=== PATIENT | male | born 1970 | race Native Hawaiian/Other Pacific Islander ===

== ENCOUNTER 2017-08-01 12:48 | Inpatient (IN) | payer OTHER ==
[2017-08-01 13:49] LABS: Alanine Aminotransferase 33 units/L (7-56); Albumin 3.3 g/dL (3.9-5); BUN/Creatinine Ratio 14; Blood Urea Nitrogen 11 mg/dL (9-20); Calcium 8.2 mg/dL (8.4-10.2); Hemolysis Index 6
[2017-08-01 14:03] LABS: Basophils # (Auto) 0.1 K/mm3 (0.0-0.1); Basophils % (Auto) 0.5 % (0.0-1.8); Eosinophils % (Auto) 0.3 % (0.0-4.3); Hematocrit 43.4 % (35.5-45.6); Hemoglobin 14.6 gm/dl (11.8-15.2); Lymphocytes # (Auto) 1.1 K/mm3 (1.2-5.4); Lymphocytes % (Auto) 9.3 % (13.4-35.0); Mean Corpuscular HGB Conc 34 % (32-34); Mean Corpuscular Hemoglobin 30 pg (28-32); Mean Corpuscular Volume 90 fl (84-94); Monocytes # (Auto) 1.8 K/mm3 (0.0-0.8); Red Blood Count 4.81 M/mm3 (3.65-5.03); Red Cell Distribution Width 13.1 % (13.2-15.2)
[2017-08-01 14:49] LABS: Platelet Count 127 K/mm3 (140-440)
[2017-08-01] MEDS ORDERED: NACL 0.9% 1000 ML 1,000 ML IV ONE (20:51)
[2017-08-01] MEDS ORDERED: ZOFRAN IV ONE (20:52)
[2017-08-01] MEDS ORDERED: SUBLIMAZE IV ONE (20:52)
--- NOTE | 2017-08-01 20:53 | Emergency Department Report ---
HPI - General Chief Complaint: Abdominal Pain - HPI HPI: The patient is a 47 yo male who presents for evaluation of abdominal pain. The patient reports generalized abdominal pain for the past 4 days. He states that his abdominal pain has been concentrated to the upper abdomen, crampy in quality , moderate severity, exacerbated with movement. The patient denies headache, neck stiffness or throat pain, parasthesias, hemoptysis, palpitations, vomiting , diarrhea, dysuria. ED Past Medical Hx - Past Medical History Previous Medical History?: No - Surgical History Past Surgical History?: No - Social History Smoking Status: Never Smoker ED Review of Systems ROS: Stated complaint: ABDOMINAL PAIN Other details as noted in HPI Constitutional: denies: fever ENT: denies: throat or neck pain Respiratory: denies shortness of breath Cardiovascular: denies: chest pain Endocrine: denies unexplained weight loss or gain Gastrointestinal: reports: abdominal pain, nausea Genitourinary: denies: dysuria Musculoskeletal: denies: leg swelling Skin: denies: rash Neurological: denies: headache Hematological/Lymphatic: denies: easy bleeding or easy bruising Psych: denies sadness or hopelessness Physical Exam - Physical Exam Vital Signs: Vital Signs 08/01/17 13:02 Temperature 100.1 F H Pulse Rate 110 H Blood Pressure 90/59 Physical Exam: General: well-nourished, well-developed, no acute distress Head: Normocephalic, atraumatic Eyes: normal sclera ENT: Mucous membranes are pale and dry Neck: No neck stiffness, no cervical adenopathy Respiratory: Breath sounds equal bilaterally, no wheezing, rales, or rhonchi Cardio: S1 and S2 present, no murmurs, rubs, gallops, capillary refill is delayed Abdomen: Normoactive bowel sounds, soft abdomen, generalized tenderness to palpation present, no rigidity, no guarding or rebound tenderness Chest WALL/Back: No tenderness to palpation of the chest wall, no CVA tenderness with percussion Musc: No pitting edema Skin: No rash Neuro: no facial drooping, normal speech Psych: Normal affect ED Course Vital Signs 08/01/17 13:02 Temperature 100.1 F H Pulse Rate 110 H Blood Pressure 90/59 ED Medical Decision Making - Lab Data Result diagrams: 08/01/17 13:19 08/01/17 13:19 - Medical Decision Making The patient was seen and examined by myself. The patient is placed on a laboratory monitor and continuous pulse ox. On initial evaluation, the patient was found to be in no distress, although febrile, temperature 101.9, tachycardic, and near hypotensive, concerning for acute septic shock. Evaluation orders were placed. The patient is given normal saline fluid bolus for treatment of dehydration and potential septic shock. The patient is given IV Zosyn. Lab results revealed leukocytosis, elevated lipase of 79, and elevated BNP of 3000. CT scan abdomen and pelvis reveals basilar infiltrate associated with pleural effusion. The on-call hospitalist service was contacted. They agreed to admit the patient for further treatment and close monitoring. The ED admit order was placed. The patient was admitted in guarded condition. Critical Care Time: Yes Critical care time in (mins) excluding proc time.: 35 Critical care attestation.: Due to the critical nature of this patients presentation, which necessitated multiple bedside assessments, manipulation and supportive measures to prevent further life threatening deterioration, I would like to bill for a total of 35 minutes of critical care time. This was exclusive of any separately billable procedures. Critical Care Time: 35 min ED Disposition Clinical Impression: Abdominal pain, acute, periumbilical, Dehydration, Septic shock Sepsis Qualifiers: Sepsis type: sepsis due to unspecified organism Qualified Code(s): A41.9 - Sepsis, unspecified organism Pneumonia Qualifiers: Pneumonia type: due to unspecified organism Laterality: bilateral Lung location : lower lobe of lung Qualified Code(s): J18.1 - Lobar pneumonia, unspecified organism Disposition: OP ADMIT IP TO THIS HOSP Is pt being admited?: Yes Does the pt Need Aspirin: Yes Condition: Critical Time of Disposition: 20:52
[2017-08-01] MEDS ORDERED: TYLENOL PR ONE (21:06)
[2017-08-01] MEDS ORDERED: TYLENOL ONE (21:10)
[2017-08-01] MEDS ORDERED: TYLENOL PO ONE (21:12)
--- NOTE | 2017-08-01 22:04 | Cat Scan Report ---
FINAL REPORT PROCEDURE: CT ABDOMEN PELVIS W CON TECHNIQUE: Computerized axial tomography of the abdomen and pelvis was performed after the IV injection of iodinated nonionic contrast. HISTORY: abdominal pain, fever COMPARISON: No prior studies are available for comparison. FINDINGS: Visualized lower thorax: Mild atelectasis/infiltrate and slight bilateral lower lung effusions.. Liver: Normal size and attenuation. Spleen: Normal size and attenuation. Gallbladder and biliary system: Normal. Pancreas: Normal. Adrenals: Normal. Kidneys: Normal. GI tract: The stomach is normal. The small bowel has a normal caliber without obstruction. No ileus or enteritis. The cecum and appendix are normal. Moderate diverticular changes within the colon.. Lymph nodes and mesentery: Normal. Vasculature: Normal. Bladder: Normal. Reproductive organs: Normal. Peritoneum: No free fluid. Musculoskeletal structures: No significant abnormality. Other: None. IMPRESSION: There is no evidence of intestinal or urinary tract obstruction. No ileus or enteritis. The appendix is normal. Bilateral lower lung infiltrates/atelectasis with mild effusions.
--- NOTE | 2017-08-01 23:00 | XRay Report ---
FINAL REPORT PROCEDURE: XR CHEST 1V AP TECHNIQUE: Chest radiograph anteroposterior view. CPT 52705 HISTORY: cough, fever COMPARISON: No prior studies are available for comparison. FINDINGS: Heart: Normal. Mediastinum/Vessels: Normal. Lungs/Pleural space: Normal. Bony thorax: No acute osseous abnormality. Life support devices: None. IMPRESSION: No acute cardiopulmonary abnormality.
[2017-08-01] MEDS ORDERED: MORPHINE IV PRN (23:16)
[2017-08-01] MEDS ORDERED: ZOFRAN IV PRN (23:16)
[2017-08-01] MEDS ORDERED: TYLENOL PO PRN (23:16)
[2017-08-01] MEDS ORDERED: SODIUM CHLORIDE FLUSH SYRINGE 10 ML IV PRN (23:16)
--- NOTE | 2017-08-01 23:16 | History and Physical Report ---
History of Present Illness Date of examination: 08/01/17 Date of admission: 08/01/17 Chief complaint: Fever 2 days duration History of present illness: MAKAH: The patient is a 47 yo male who presents for evaluation of abdominal pain. The patient reports generalized abdominal pain for the past 4 days. He states that his abdominal pain has been concentrated to the upper abdomen, crampy in quality , moderate severity, exacerbated with movement. The patient denies headache, neck stiffness or throat pain, parasthesias, hemoptysis, palpitations, vomiting , diarrhea, dysuria. Past Medical History Previous Medical History?: No Surgical History Past Surgical History?: No Social History Smoking Status: Never Smoker Review of Systems ROS: Stated complaint: ABDOMINAL PAIN Other details as noted in HPI Constitutional: denies: fever ENT: denies: throat or neck pain Respiratory: denies shortness of breath Cardiovascular: denies: chest pain Endocrine: denies unexplained weight loss or gain Gastrointestinal: reports: abdominal pain, nausea Genitourinary: denies: dysuria Musculoskeletal: denies: leg swelling Skin: denies: rash Neurological: denies: headache Hematological/Lymphatic: denies: easy bleeding or easy bruising Psych: denies sadness or hopelessness Medications and Allergies Allergies Allergy/AdvReac Type Severity Reaction Status Date / Time No Known Allergies Allergy Verified 08/01/17 20:53 Active Meds: Active Medications Piperacillin Sod/Tazobactam Sod (Zosyn/Ns 3.375gm/50ml) 3.375 gm in 50 mls @ 100 mls/hr IV Q6HR DIMA Exam - Constitutional Vitals: Temp Pulse Resp BP Pulse Ox 98.5 F 94 H 17 98/57 93 08/01/17 22:38 08/01/17 21:16 08/01/17 21:16 08/01/17 22:00 08/01/17 22:00 Results - Labs CBC & Chem 7: 08/01/17 13:19 08/01/17 13:19 Labs: Laboratory Last Values WBC 11.7 K/mm3 (4.5-11.0) H 08/01/17 13:19 RBC 4.81 M/mm3 (3.65-5.03) 08/01/17 13:19 Hgb 14.6 gm/dl (11.8-15.2) 08/01/17 13:19 Hct 43.4 % (35.5-45.6) 08/01/17 13:19 MCV 90 fl (84-94) 08/01/17 13:19 MCH 30 pg (28-32) 08/01/17 13:19 MCHC 34 % (32-34) 08/01/17 13:19 RDW 13.1 % (13.2-15.2) L 08/01/17 13:19 Plt Count 127 K/mm3 (140-440) L 08/01/17 13:19 Lymph % (Auto) 9.3 % (13.4-35.0) L 08/01/17 13:19 [place] % (Auto) 15.0 % (0.0-7.3) H 08/01/17 13:19 Eos % (Auto) 0.3 % (0.0-4.3) 08/01/17 13:19 Baso % (Auto) 0.5 % (0.0-1.8) 08/01/17 13:19 Lymph # 1.1 K/mm3 (1.2-5.4) L 08/01/17 13:19 [place] # 1.8 K/mm3 (0.0-0.8) H 08/01/17 13:19 Eos # 0.0 K/mm3 (0.0-0.4) 08/01/17 13:19 Baso # 0.1 K/mm3 (0.0-0.1) 08/01/17 13:19 Seg Neutrophils % 74.9 % (40.0-70.0) H 08/01/17 13:19 Seg Neutrophils # 8.8 K/mm3 (1.8-7.7) H 08/01/17 13:19 Sodium 132 mmol/L (137-145) L 08/01/17 13:19 Potassium 3.8 mmol/L (3.6-5.0) 08/01/17 13:19 Chloride 94.5 mmol/L (98-107) L 08/01/17 13:19 Carbon Dioxide 25 mmol/L (22-30) 08/01/17 13:19 Anion Gap 16 mmol/L 08/01/17 13:19 BUN 11 mg/dL (9-20) 08/01/17 13:19 Creatinine 0.8 mg/dL (0.8-1.5) 08/01/17 13:19 Estimated GFR > 60 ml/min 08/01/17 13:19 BUN/Creatinine Ratio 14 % 08/01/17 13:19 Glucose 105 mg/dL (75-100) H 08/01/17 13:19 Lactic Acid 1.40 mmol/L (0.7-2.0) 08/01/17 21:47 Calcium 8.2 mg/dL (8.4-10.2) L 08/01/17 13:19 Total Bilirubin 1.00 mg/dL (0.1-1.2) 08/01/17 13:19 AST 41 units/L (5-40) H 08/01/17 13:19 ALT 33 units/L (7-56) 08/01/17 13:19 Alkaline Phosphatase 73 units/L (35-129) 08/01/17 13:19 NT-Pro-B Natriuret Pep 3051 pg/mL (0-450) H 08/01/17 21:47 Total Protein 6.8 g/dL (6.3-8.2) 08/01/17 13:19 Albumin 3.3 g/dL (3.9-5) L 08/01/17 13:19 Albumin/Globulin Ratio 0.9 % 08/01/17 13:19 Lipase 79 units/L (13-60) H 08/01/17 21:47 - Imaging and Cardiology Chest x-ray: report reviewed (no acute findings) CT scan - abdomen: report reviewed (bilateral lower lung infiltrates) Assessment and Plan Advance Directives: Yes (full code) VTE prophylaxis?: Chemical Plan of care discussed with patient/family: Yes - Patient Problems (1) Sepsis Current Visit: Yes Status: Acute Qualifiers: Sepsis type: sepsis due to unspecified organism Qualified Code(s): A41.9 - Sepsis, unspecified organism Plan to address problem: Patient has hypotension and elevated white count but normal lactic acid. Patient's clinical picture consistent with sepsis (2) Pneumonia Current Visit: Yes Status: Acute Qualifiers: Pneumonia type: due to unspecified organism Laterality: bilateral Lung location: lower lobe of lung Qualified Code(s): J18.1 - Lobar pneumonia, unspecified organism Plan to address problem: IV antibiotics for now (3) Dehydration Current Visit: Yes Status: Acute Plan to address problem: IV fluids for now BNP elevated ECHO ordered (4) DVT prophylaxis Current Visit: Yes Status: Acute Plan to address problem: On Lovenox
[2017-08-02] MEDS: ZOSYN/NS 3.375GM/50ML 3.375 GM/50 ML BAG IV SCH ×5 (00:33→18:06)
[2017-08-02] MEDS ORDERED: NACL 0.9% 1000 ML 1,000 ML IV ONE (00:34)
[2017-08-02] MEDS ORDERED: D5NS 1,000 ML IV ONE (00:38)
[2017-08-02] MEDS ORDERED: NACL 0.9% 1000 ML 2,000 ML IV ONE (00:39)
[2017-08-02 01:49] LABS: Bilirubin,Urine NEG (Negative); Blood,Urine NEG (Negative); Color,Urine Yellow (Yellow); Protein,Urine <15 mg/dL mg/dL (Negative)
[2017-08-02] MEDS: HEPARIN SUB-Q SCH ×3 (05:32→22:49)
[2017-08-02] MEDS: PEPCID IV SCH ×3 (05:34→22:49)
[2017-08-02 08:55] LABS: Hematocrit 37.4 % (35.5-45.6); Hemoglobin 12.8 gm/dl (11.8-15.2); Mean Corpuscular HGB Conc 34 % (32-34); Mean Corpuscular Hemoglobin 31 pg (28-32); Mean Corpuscular Volume 90 fl (84-94); Platelet Count 122 K/mm3 (140-440); Red Blood Count 4.18 M/mm3 (3.65-5.03); Red Cell Distribution Width 13.2 % (13.2-15.2)
[2017-08-02 09:06] LABS: Alanine Aminotransferase 24 units/L (7-56); Albumin 2.8 g/dL (3.9-5); BUN/Creatinine Ratio 15; Blood Urea Nitrogen 12 mg/dL (9-20); Calcium 7.7 mg/dL (8.4-10.2); Hemolysis Index 6
[2017-08-02] MEDS: SODIUM CHLORIDE FLUSH SYRINGE 10 ML IV SCH ×2 (10:22→23:02)
[2017-08-02 10:59] LABS: Basophils % (Manual) 0 % (0.0-1.8); Large Platelets Few; RBC Morphology Normal; Total Cells Counted 100
[2017-08-02 11:00] LABS: Platelet Estimate Consistent w Auto
[2017-08-02] MEDS: D5NS 1,000 ML IV SCH (13:12)
--- NOTE | 2017-08-02 13:39 | Progress Note ---
Assessment and Plan - Patient Problems (1) Abdominal pain, acute, periumbilical Current Visit: Yes Status: Acute Plan to address problem: Abdominal pain most likely secondary to pneumonia with referred pain. See CT scan abdomen and pelvis. She can eat today we'll restart regular diet (2) Dehydration Current Visit: Yes Status: Acute Plan to address problem: Resolved with IV hydration. (3) Pneumonia Current Visit: Yes Status: Acute Qualifiers: Pneumonia type: due to unspecified organism Laterality: bilateral Lung location: lower lobe of lung Qualified Code(s): J18.1 - Lobar pneumonia, unspecified organism Plan to address problem: With pneumonia has mild atelectasis and infiltrate associated with cough. On physical exam he has bilateral crackles which are most likely the explanation for the lower lobe effusions. Continue IV antibiotics tomorrow changed to by mouth medications quickly and anticipated discharge in a.m. Patient no longer has evidence of sepsis with tachycardia and hypoxemia. She has been educated on weight loss and smoking cessation. (4) Sepsis Current Visit: Yes Status: Acute Qualifiers: Sepsis type: sepsis due to unspecified organism Qualified Code(s): A41.9 - Sepsis, unspecified organism Plan to address problem: Patient no longer tachycardic hypoxemic has resolved with IV antibiotics and fluids. (5) Smoking greater than 10 pack years Current Visit: Yes Status: Acute Plan to address problem: Agent educated about smoking cessation does not have primary care physician will give primary care physician (6) Obesity (BMI 30-39.9) Current Visit: Yes Status: Acute Plan to address problem: Weight loss and low carb diet. His exercise. History Interval history: Patient states he feels much better today. No longer has fever no bradycardia. Feels much stronger. No further abdominal pain. Patient hungry and ready to eat. Hospitalist Physical - Constitutional Vitals: Temp Pulse Resp BP Pulse Ox 99.6 F 85 20 90/50 93 08/02/17 07:48 08/02/17 07:48 08/02/17 07:48 08/02/17 08:54 08/02/17 07:48 General appearance: Present: no acute distress - EENT Eyes: Present: PERRL, EOM intact ENT: hearing intact, clear oral mucosa, dentition normal - Neck Neck: Present: supple, normal ROM - Respiratory Respiratory: bilateral: rhonchi (bilateral crackles on exam.) - Cardiovascular Rhythm: regular - Extremities Extremities: no ischemia, pulses intact, pulses symmetrical, No edema, normal temperature, normal color Peripheral Pulses: within normal limits - Abdominal General gastrointestinal: soft, non-tender, non-distended, normal bowel sounds - Integumentary Integumentary: Present: clear, warm, dry - Psychiatric Psychiatric: appropriate mood/affect, intact judgment & insight - Neurologic Neurologic: CNII-XII intact, moves all extremities Results - Labs CBC & Chem 7: 08/02/17 08:17 08/02/17 08:17 Labs: Laboratory Last Values WBC 8.1 K/mm3 (4.5-11.0) 08/02/17 08:17 RBC 4.18 M/mm3 (3.65-5.03) 08/02/17 08:17 Hgb 12.8 gm/dl (11.8-15.2) 08/02/17 08:17 Hct 37.4 % (35.5-45.6) D 08/02/17 08:17 MCV 90 fl (84-94) 08/02/17 08:17 MCH 31 pg (28-32) 08/02/17 08:17 MCHC 34 % (32-34) 08/02/17 08:17 RDW 13.2 % (13.2-15.2) 08/02/17 08:17 Plt Count 122 K/mm3 (140-440) L 08/02/17 08:17 Lymph % (Auto) 9.3 % (13.4-35.0) L 08/01/17 13:19 [place] % (Auto) Machine Spreader 08/02/17 08:17 Eos % (Auto) 0.3 % (0.0-4.3) 08/01/17 13:19 Baso % (Auto) 0.5 % (0.0-1.8) 08/01/17 13:19 Lymph # 1.1 K/mm3 (1.2-5.4) L 08/01/17 13:19 [place] # 1.8 K/mm3 (0.0-0.8) H 08/01/17 13:19 Eos # 0.0 K/mm3 (0.0-0.4) 08/01/17 13:19 Baso # 0.1 K/mm3 (0.0-0.1) 08/01/17 13:19 Add Manual Diff Complete 08/02/17 08:17 Total Counted 100 08/02/17 08:17 Seg Neutrophils % 74.9 % (40.0-70.0) H 08/01/17 13:19 Seg Neuts % (Manual) 64.0 % (40.0-70.0) 08/02/17 08:17 Band Neutrophils % 0 % 08/02/17 08:17 Lymphocytes % (Manual) 25.0 % (13.4-35.0) 08/02/17 08:17 Reactive Lymphs % (Man) 3.0 % 08/02/17 08:17 Monocytes % (Manual) 5.0 % (0.0-7.3) 08/02/17 08:17 Eosinophils % (Manual) 3.0 % (0.0-4.3) 08/02/17 08:17 Basophils % (Manual) 0 % (0.0-1.8) 08/02/17 08:17 Metamyelocytes % 0 % 08/02/17 08:17 Myelocytes % 0 % 08/02/17 08:17 Promyelocytes % 0 % 08/02/17 08:17 Blast Cells % 0 % 08/02/17 08:17 Nucleated RBC % Not Reportable 08/02/17 08:17 Seg Neutrophils # 8.8 K/mm3 (1.8-7.7) H 08/01/17 13:19 Seg Neutrophils # Man 5.2 K/mm3 (1.8-7.7) 08/02/17 08:17 Band Neutrophils # 0.0 K/mm3 08/02/17 08:17 Lymphocytes # (Manual) 2.0 K/mm3 (1.2-5.4) 08/02/17 08:17 Abs React Lymphs (Man) 0.2 K/mm3 08/02/17 08:17 Monocytes # (Manual) 0.4 K/mm3 (0.0-0.8) 08/02/17 08:17 Eosinophils # (Manual) 0.2 K/mm3 (0.0-0.4) 08/02/17 08:17 Basophils # (Manual) 0.0 K/mm3 (0.0-0.1) 08/02/17 08:17 Metamyelocytes # 0.0 K/mm3 08/02/17 08:17 Myelocytes # 0.0 K/mm3 08/02/17 08:17 Promyelocytes # 0.0 K/mm3 08/02/17 08:17 Blast Cells # 0.0 K/mm3 08/02/17 08:17 WBC Morphology Not Reportable 08/02/17 08:17 Hypersegmented Neuts Not Reportable 08/02/17 08:17 Hyposegmented Neuts Not Reportable 08/02/17 08:17 Hypogranular Neuts Not Reportable 08/02/17 08:17 Smudge Cells Not Reportable 08/02/17 08:17 Toxic Granulation Not Reportable 08/02/17 08:17 Toxic Vacuolation Not Reportable 08/02/17 08:17 Dohle Bodies Not Reportable 08/02/17 08:17 Pelger-Huet Anomaly Not Reportable 08/02/17 08:17 Ashley Rods Not Reportable 08/02/17 08:17 Platelet Estimate Consistent w auto 08/02/17 08:17 Clumped Platelets Not Reportable 08/02/17 08:17 Plt Clumps, EDTA Not Reportable 08/02/17 08:17 Large Platelets Few 08/02/17 08:17 Giant Platelets Not Reportable 08/02/17 08:17 Platelet Satelliting Not Reportable 08/02/17 08:17 Plt Morphology Comment Not Reportable 08/02/17 08:17 RBC Morphology Normal 08/02/17 08:17 Dimorphic RBCs Not Reportable 08/02/17 08:17 Polychromasia Not Reportable 08/02/17 08:17 Hypochromasia Not Reportable 08/02/17 08:17 Poikilocytosis Not Reportable 08/02/17 08:17 Anisocytosis Not Reportable 08/02/17 08:17 Microcytosis Not Reportable 08/02/17 08:17 Macrocytosis Not Reportable 08/02/17 08:17 Spherocytes Not Reportable 08/02/17 08:17 Pappenheimer Bodies Not Reportable 08/02/17 08:17 Sickle Cells Not Reportable 08/02/17 08:17 Target Cells Not Reportable 08/02/17 08:17 Tear Drop Cells Not Reportable 08/02/17 08:17 Ovalocytes Not Reportable 08/02/17 08:17 Helmet Cells Not Reportable 08/02/17 08:17 [place]-Woolsey Bodies Not Reportable 08/02/17 08:17 Bieber Rings Not Reportable 08/02/17 08:17 Bellamy Cells Not Reportable 08/02/17 08:17 Bite Cells Not Reportable 08/02/17 08:17 Crenated Cell Not Reportable 08/02/17 08:17 Elliptocytes Not Reportable 08/02/17 08:17 Acanthocytes (Spur) Not Reportable 08/02/17 08:17 Rouleaux Not Reportable 08/02/17 08:17 Hemoglobin C Crystals Not Reportable 08/02/17 08:17 Schistocytes Not Reportable 08/02/17 08:17 Malaria parasites Not Reportable 08/02/17 08:17 Demetrius Bodies Not Reportable 08/02/17 08:17 Hem Pathologist Commnt No 08/02/17 08:17 Sodium 139 mmol/L (137-145) D 08/02/17 08:17 Potassium 3.6 mmol/L (3.6-5.0) 08/02/17 08:17 Chloride 100.0 mmol/L (98-107) 08/02/17 08:17 Carbon Dioxide 29 mmol/L (22-30) 08/02/17 08:17 Anion Gap 14 mmol/L 08/02/17 08:17 BUN 12 mg/dL (9-20) 08/02/17 08:17 Creatinine 0.8 mg/dL (0.8-1.5) 08/02/17 08:17 Estimated GFR > 60 ml/min 08/02/17 08:17 BUN/Creatinine Ratio 15 % 08/02/17 08:17 Glucose 101 mg/dL (75-100) H 08/02/17 08:17 Hemoglobin A1c 5.6 % (4-6) 08/01/17 23:52 Lactic Acid 1.40 mmol/L (0.7-2.0) 08/01/17 21:47 Calcium 7.7 mg/dL (8.4-10.2) L 08/02/17 08:17 Total Bilirubin 0.90 mg/dL (0.1-1.2) 08/02/17 08:17 AST 21 units/L (5-40) 08/02/17 08:17 ALT 24 units/L (7-56) 08/02/17 08:17 Alkaline Phosphatase 60 units/L (35-129) 08/02/17 08:17 NT-Pro-B Natriuret Pep 3051 pg/mL (0-450) H 08/01/17 21:47 Total Protein 6.1 g/dL (6.3-8.2) L 08/02/17 08:17 Albumin 2.8 g/dL (3.9-5) L 08/02/17 08:17 Albumin/Globulin Ratio 0.8 % 08/02/17 08:17 Lipase 79 units/L (13-60) H 08/01/17 21:47 Urine Color Yellow (Yellow) 08/02/17 01:13 Urine Turbidity Clear (Clear) 08/02/17 01:13 Urine pH 6.0 (5.0-7.0) 08/02/17 01:13 Ur Specific [place] 1.033 (1.003-1.030) H 08/02/17 01:13 Urine Protein <15 mg/dl mg/dL (Negative) 08/02/17 01:13 Urine Glucose (UA) Neg mg/dL (Negative) 08/02/17 01:13 Urine Ketones 20 mg/dL (Negative) 08/02/17 01:13 Urine Blood Neg (Negative) 08/02/17 01:13 Urine Nitrite Neg (Negative) 08/02/17 01:13 Urine Bilirubin Neg (Negative) 08/02/17 01:13 Urine Urobilinogen 4.0 mg/dL (<2.0) 08/02/17 01:13 Ur Leukocyte Esterase Neg (Negative) 08/02/17 01:13 Urine WBC (Auto) 1.0 /HPF (0.0-6.0) 08/02/17 01:13 Urine RBC (Auto) 1.0 /HPF (0.0-6.0) 08/02/17 01:13 U Epithel Cells (Auto) < 1.0 /HPF (0-13.0) 08/02/17 01:13
[2017-08-03] MEDS: ZOSYN/NS 3.375GM/50ML 3.375 GM/50 ML BAG IV SCH ×3 (00:30→12:39)
[2017-08-03] MEDS: D5NS 1,000 ML IV SCH (00:32)
[2017-08-03] MEDS: HEPARIN SUB-Q SCH (09:39)
[2017-08-03] MEDS: PEPCID IV SCH (09:39)
[2017-08-03] MEDS: SODIUM CHLORIDE FLUSH SYRINGE 10 ML IV SCH (09:40)
--- NOTE | 2017-08-03 11:08 | Discharge Summary ---
Providers - Providers Date of Admission: 08/01/17 23:16 Date of discharge: 08/03/17 Attending physician: BRIGETTE CASTAÑEDA Primary care physician: [employer] Hospitalization Condition: Critical Pertinent studies: CT scan which showed bilateral atelectasis and mild infiltrate left lower lobe. Patient diagnosed with pneumonia Hospital course: Originally presented with abdominal pain. Described as epigastric pain 7 out of 10. Patient was brought in was found to be septic tachycardic hypotensive leukocytosis. At that time CT scan of abdomen was obtained because patient was having abdominal symptoms however found to have pneumonia. This may plausible since. On physical exam is well you could hear bilateral crackles and decreased breath sounds on left side. Patient did better after starting IV antibiotics and oxygen nebulizers as well. Patient abdominal pain resolved. Patient was hemodynamically stabilized and is stable to transfer home with by mouth antibiotic coverage and follow primary care physician in 5-7 days. Disposition: TO HOME OR SELFCARE - Discharge Diagnoses (1) Abdominal pain, acute, periumbilical Status: Resolved (2) Dehydration Status: Resolved (3) Pneumonia Status: Acute Qualifiers: Pneumonia type: due to unspecified organism Laterality: bilateral Lung location: lower lobe of lung Qualified Code(s): J18.1 - Lobar pneumonia, unspecified organism Comment: Given Levaquin for a total of 10 days. (4) Sepsis Status: Acute Qualifiers: Sepsis type: sepsis due to unspecified organism Qualified Code(s): A41.9 - Sepsis, unspecified organism (5) Smoking greater than 10 pack years Status: Acute Comment: Patient has been educated to stop smoking. Also exercise for obesity. (6) Obesity (BMI 30-39.9) Status: Acute Comment: Exercise diet. Core Measure Documentation - Palliative Care Palliative Care/ Comfort Measures: Not Applicable - Core Measures Any of the following diagnoses?: none Exam - Constitutional Vitals: Temp Pulse Resp BP Pulse Ox 97.8 F 76 16 100/64 97 08/03/17 08:08 08/03/17 08:08 08/03/17 08:17 08/03/17 08:08 08/03/17 08:08 General appearance: Present: no acute distress, well-nourished - EENT Eyes: Present: PERRL ENT: hearing intact, clear oral mucosa - Neck Neck: Present: supple, normal ROM - Respiratory Respiratory effort: normal Respiratory: bilateral: CTA, rales, rhonchi (bilateral l greater than right) - Cardiovascular Heart Sounds: Present: S1 & S2. Absent: rub, click - Extremities Extremities: pulses symmetrical, No edema Peripheral Pulses: within normal limits - Abdominal General gastrointestinal: Present: soft, non-tender, non-distended, normal bowel sounds Male genitourinary: Present: normal - Integumentary Integumentary: Present: clear, warm, dry - Musculoskeletal Musculoskeletal: gait normal, strength equal bilaterally - Psychiatric Psychiatric: appropriate mood/affect, intact judgment & insight - Neurologic Neurologic: CNII-XII intact, moves all extremities Plan Activity: no restrictions Weight Bearing Status: Full Weight Bearing Diet: low salt Special Instructions: smoking cessation Follow up with: PRIMARY CARE, [Primary Care Provider] - 3-5 Days
[2017-08-03 13:44] VITALS: BP 100/60
[2017-08-03] MEDS ORDERED: PEPCID PO SCH (22:00)
== END 2017-08-03 14:30 | disposition home or self-care (01) | DRG 871 ==
LOC: ED 12:48 → 3A 23:16
PROVIDERS: ADMIT Internal Medicine; ATTEND Internal Medicine
DX: A41.9 Sepsis, unspecified organism (principal); J18.9 Pneumonia, unspecified organism; R65.21 Severe sepsis with septic shock; R10.33 Periumbilical pain; E86.0 Dehydration; F17.200 Nicotine dependence, unspecified, uncomplicated; E66.9 Obesity, unspecified; Z71.6 Tobacco abuse counseling; Z68.31 Body mass index [BMI] 31.0-31.9, adult
CPT/HCPCS: 36415; 71045; 74177; 80053; 81001; 82140; 83036; 83690; 83880; 85007; 85025; 87040; 87086; 93005; 93010; J1644; J2405; J2543; J3010; J7030; J7042; Q9967